=== PATIENT | male | born 1940 | race Caucasian/White ===

== ENCOUNTER 2018-03-24 06:13 | Day surgery (SDC) | payer OTHER, MEDICARE ==
[2018-03-09 13:12] VITALS: BMI 28.0
[2018-03-24] MEDS ORDERED: BUPIVACAINE HCL/PF 2.5 MG/ML - 30 ML VIAL IJ ONE (07:24)
[2018-03-24] MEDS ORDERED: LIDOCAINE HCL 2% (20ML MULTI-DOSE VIAL) NR ONE (07:25)
[2018-03-24] MEDS ORDERED: LIDOCAINE 1%/EPI 1:100000 (20 ML MULTI DOSE VIAL) ONE (07:28)
[2018-03-24] MEDS ORDERED: SODIUM BICARBONATE 8.4% 50 MEQ/50 ML VIAL ONE (07:28)
[2018-03-24 08:40] VITALS: TEMP 98
[2018-03-24 09:18] VITALS: BP 123/72; PULSE 80
--- NOTE | 2018-03-25 11:20 | OP ---
DATE OF OPERATION: 03/24/2018 SURGEON: Susie Centeno MD PREOPERATIVE DIAGNOSIS: Left long trigger-finger. POSTOPERATIVE DIAGNOSIS: Left long trigger-finger. OPERATIVE PROCEDURE: Left long trigger-finger release. ANESTHESIA: Local. COMPLICATIONS: None. ESTIMATED BLOOD LOSS: Minimal. INDICATIONS FOR PROCEDURE: The patient is a 77-year-old male with the above findings. He was indicated for operative treatment. The risks, benefits, and alternatives were again discussed with the patient at length. Proper informed consent was obtained. DESCRIPTION OF PROCEDURE: After proper identification of the patient and the correct operative site, the patient was brought to the operating room and placed supine on the operating room table. All bony prominences were well padded. Local anesthesia using 1% lidocaine with epinephrine and bicarbonate was used. Tourniquet was not inflated. Left upper extremity was prepped and draped in the usual sterile fashion. As the patients preoperative symptoms seemed like the triggering was coming from more than just A1 mayank, I prepared the patient for a full Sharita incision of the finger to open up the entire tendon sheath. We started with a diagonal incision over the A1 mayank. The incision was taken sharply through the skin with blunt and sharp dissection through subcutaneous tissues. A1 mayank was identified and found to be significantly hypertrophic and thickened. It was then divided longitudinally. There was still some triggering demonstrated, and the proximal aspect of the A2 mayank was divided. At this point, no further triggering occurred with the patient actively flexing and extending his finger into a full fist which he was able to do because he was completely awake. Therefore, no further release was needed, and the tendons both normal in appearance. The wound was irrigated and repaired with a 5-0 nylon suture. Sterile dressings were applied. Patient was brought to the recovery room in stable condition. He tolerated the procedure well. SUSIE CENTENO M.D. [id number]
== END 2018-03-24 08:55 | disposition home or self-care (01) ==
LOC: FASU 06:13
PROVIDERS: ATTEND Orthopaedic Surgery Hand Surgery
PROC: 0LN80ZZ Release Left Hand Tendon, Open Approach (ICD-10-PCS; principal; 2018-03-24 08:00)
DX: M65.332 Trigger finger, left middle finger (principal)

== ENCOUNTER 2021-08-16 14:01 | Emergency (ER) | payer OTHER, MEDICARE ==
[2021-08-16 14:20] VITALS: TEMP 98.3; BMI 28.9
[2021-08-16] MEDS ORDERED: BAMLANIVIMAB 700 MG, ETESEVIMAB 1,400 MG in SODIUM CHLORIDE 100 ML IVPB ONE (15:37)
[2021-08-16] MEDS ORDERED: BEBTELOVIMAB (EUA) 175 MG/2 ML VIAL IVPUSH ONE (16:46)
[2021-08-16 21:33] VITALS: BP 113/60; PULSE 56
== END 2021-08-16 18:52 | disposition home or self-care (01) ==
LOC: JER 14:01
PROC: 3E033GC Introduction of Other Therapeutic Substance into Peripheral Vein, Percutaneous Approach (ICD-10-PCS; principal; 2021-08-16)
DX: U07.1 COVID-19 (principal)
CPT/HCPCS: 99284-25; M0222; Q0222

== ENCOUNTER 2022-01-17 11:51 | Emergency (ER) | payer OTHER, MEDICARE ==
[2022-01-17] MEDS ORDERED: BACITRACIN 15 GM TUBE TOPICAL OINTMENT TP ONE (11:57)
[2022-01-17 11:59] VITALS: BP 122/71; PULSE 52; RESP 18; TEMP 97.7; BMI 29.5
== END 2022-01-17 12:48 | disposition home or self-care (01) ==
LOC: FER 11:51
DX: S61.401A Unspecified open wound of right hand, initial encounter (principal); W22.09XA Striking against other stationary object, initial encounter
CPT/HCPCS: 99282-25

== ENCOUNTER 2022-05-27 15:07 | Emergency (ER) | payer OTHER, MEDICARE ==
[2022-05-27 15:34] VITALS: BP 134/72; PULSE 66; RESP 16; TEMP 98.6; BMI 29.1
[2022-05-27] MEDS ORDERED: LIDOCAINE HCL 2% (50ML VIAL) INF ONE (16:06)
[2022-05-27] MEDS ORDERED: LIDOCAINE HCL 2% (20ML MULTI-DOSE VIAL) ONE (16:07)
== END 2022-05-27 16:54 | disposition home or self-care (01) ==
LOC: FER 15:07
DX: S62.101A Fracture of unspecified carpal bone, right wrist, initial encounter for closed fracture (principal); W01.0XXA Fall on same level from slipping, tripping and stumbling without subsequent striking against object, initial encounter
CPT/HCPCS: 73110-TC-RT-FY; 99283-25

== ENCOUNTER 2023-05-14 17:47 | Emergency (ER) | payer OTHER, MEDICARE ==
[2023-05-14 18:03] VITALS: BP 123/63; PULSE 60; RESP 18; TEMP 97.8; BMI 28.7
[2023-05-14] MEDS ORDERED: ACETAMINOPHEN 500 MG TABLET (FP) PO ONE (18:07)
[2023-05-14] MEDS ORDERED: ACETAMINOPHEN 500 MG TABLET (FP) ONE (18:08)
[2023-05-14] MEDS ORDERED: oxyCODONE HCL 5 MG TABLET PO ONE (19:01)
== END 2023-05-14 19:20 | disposition home or self-care (01) ==
LOC: FER 17:47
DX: S52.592A Other fractures of lower end of left radius, initial encounter for closed fracture (principal); W10.9XXA Fall (on) (from) unspecified stairs and steps, initial encounter; W01.198A Fall on same level from slipping, tripping and stumbling with subsequent striking against other object, initial encounter
CPT/HCPCS: 73110-TC-LT-FY; 99283-25

== ENCOUNTER 2023-05-28 08:46 | Day surgery (SDC) | payer OTHER, MEDICARE ==
[2023-05-27 10:55] VITALS: BMI 29.1
[2023-05-28] MEDS ORDERED: BUPIVACAINE HCL/PF 0.5% (5 MG/ML) 30 ML VIAL IJ ONE (09:49)
[2023-05-28] MEDS ORDERED: DEXAMETHASONE SOD PHOSPHATE/PF 10 MG/ML SDV ONE (09:49)
[2023-05-28] MEDS ORDERED: FENTANYL CITRATE/PF 50 MCG/ML VIAL ONE (09:50)
[2023-05-28] MEDS ORDERED: ACETAMINOPHEN INJECTION 100 ML IVPB ONE (09:50)
[2023-05-28] MEDS ORDERED: ROPIVACAINE HCL 0.5% 30ML VIAL ONE (10:15)
[2023-05-28] MEDS ORDERED: LIDOCAINE 1%/EPI 1:100000 (20 ML MULTI DOSE VIAL) ONE (10:30)
[2023-05-28] MEDS ORDERED: ceFAZolin SODIUM 1 GM VIAL ONE ×2 (10:32)
[2023-05-28] MEDS ORDERED: MIDAZOLAM HCL 2 MG/2 ML SINGLE DOSE VIAL ONE (10:34)
[2023-05-28] MEDS ORDERED: oxyCODONE HCL 5 MG TABLET PO PRN (12:27)
[2023-05-28] MEDS ORDERED: ONDANSETRON 4 MG/2 ML VIAL IVPUSH PRN (12:27)
[2023-05-28] MEDS ORDERED: LACTATED RINGERS SOLUTION 1,000 ML IV SCH (12:30)
[2023-05-28 13:55] VITALS: TEMP 96.8
[2023-05-28 14:03] VITALS: BP 102/58; PULSE 67; RESP 19
== END 2023-05-28 13:50 | disposition home or self-care (01) ==
LOC: FASU 08:46
PROVIDERS: ATTEND Orthopaedic Surgery Sports Medicine
PROC: 0PSJ04Z Reposition Left Radius with Internal Fixation Device, Open Approach (ICD-10-PCS; principal; 2023-05-28 10:47)
DX: S52.572A Other intraarticular fracture of lower end of left radius, initial encounter for closed fracture (principal); X58.XXXA Exposure to other specified factors, initial encounter; Y93.9 Activity, unspecified; Y92.9 Unspecified place or not applicable
CPT/HCPCS: 25609; C1713; 73110-TC-LT-FY; 73130-TC-LT-FY; 94760; J0131

== ENCOUNTER 2024-08-21 00:39 | Emergency (ER) | payer OTHER, MEDICARE ==
[2024-08-21] MEDS ORDERED: ADENOSINE 6 MG/2 ML VIAL IVPUSH ONE (00:45)
[2024-08-21] MEDS: ADENOSINE 6 MG/2 ML VIAL IVPUSH ONE ×2 (00:50)
[2024-08-21 00:54] VITALS: TEMP 98.2; BMI 29.0
[2024-08-21] MEDS ORDERED: AMIODARONE HCL 150 MG/3 ML VIAL ONE (00:59)
[2024-08-21] MEDS ORDERED: AMIODARONE IN DEXTROSE,ISO-OSM 360 MG/200 ML BAG ONE (01:00)
[2024-08-21] MEDS: AMIODARONE HCL INJECTION 150 MG in DEXTROSE 5%-WATER - 100 ML IVPB ONE ×2 (01:10→02:15)
[2024-08-21] MEDS: AMIODARONE HCL 150 MG/3 ML VIAL IVPUSH ONE (01:23)
[2024-08-21] MEDS: AMIODARONE IN DEXTROSE,ISO-OSM 360 MG/200 ML BAG IV SCH (01:30)
[2024-08-21 01:54] LABS: ABSOLUTE IMMATURE GRANULOCYTES 0.01 x10^3/uL (0.0-0.031); BASOPHILS # 0.09 x10^3/uL (0.01-0.08); EOSINOPHIL % 1.8 % (0.8-7.0); EOSINOPHILS # 0.13 x10^3/uL (0.04-0.54); HEMATOCRIT 40.6 % (40.1-51.0); HEMOGLOBIN 13.3 g/dL (13.7-17.5); MCHC 32.8 g/dl (32.3-36.5); MEAN CELL VOLUME 94.4 fl (79.0-92.2); MEAN PLT VOLUME 11.5 fl (9.4-12.4); MONOCYTE # 0.81 x10^3/uL (0.30-0.82); MONOCYTE % 11.1 % (5.3-12.2); PLATELET COUNT 151 x10^3/uL (163-337)
[2024-08-21 02:10] VITALS: BP 111/80; PULSE 153; RESP 18
[2024-08-21 02:15] LABS: POTASSIUM 4.9 mmol/L (3.5-5.1)
[2024-08-21 02:17] LABS: ALBUMIN 3.6 g/dl (3.4-5.0); BLOOD UREA NITROGEN 23.9 mg/dL (7-18); CALCIUM 9.5 mg/dL (8.5-10.1); MAGNESIUM 2.1 mg/dL (1.8-2.4)
[2024-08-21 02:21] LABS: CREATININE 0.9 mg/dL (0.55-1.3)
[2024-08-21 02:22] LABS: BILIRUBIN,TOTAL 0.4 mg/dL (0.2-1); TOT PROT 6.4 g/dl (6.4-8.2)
[2024-08-21 02:25] LABS: N-TERMINAL BNP 705.5 pg/ml (5-450)
== END 2024-08-21 02:55 | disposition short-term general hospital (02) ==
LOC: FER 00:39
PROC: 3E033GC Introduction of Other Therapeutic Substance into Peripheral Vein, Percutaneous Approach (ICD-10-PCS; principal; 2024-08-21)
PROC: 3E033GC Introduction of Other Therapeutic Substance into Peripheral Vein, Percutaneous Approach (ICD-10-PCS; 2024-08-21)
PROC: 3E033GC Introduction of Other Therapeutic Substance into Peripheral Vein, Percutaneous Approach (ICD-10-PCS; 2024-08-21)
DX: I47.20 Ventricular tachycardia, unspecified (principal); M25.512 Pain in left shoulder; M79.602 Pain in left arm
CPT/HCPCS: 0241U-QW; 36415; 80053; 82550; 82553; 83605; 83735; 83880; 84100; 84484; 85025; 93005; 99291; 99292